=== PATIENT | male | born 1980 | race Two or more races ===

== ENCOUNTER 2022-12-01 05:44 | Emergency (ER) | payer OTHER ==
[~2022-12-01] VITALS: Ht 167.6 cm; Wt 80.3 kg
[2022-12-01] MEDS ORDERED: DICLOFENAC SODI75 MG PO (08:21)
== END 2022-12-01 08:51 | disposition home or self-care (01) ==
LOC: ER 05:44
DX: M79.602 Pain in left arm (principal)

== ENCOUNTER 2024-06-16 08:41 | Emergency (ER) | payer OTHER ==
[~2024-06-16] VITALS: Ht 175.3 cm; Wt 80.7 kg
[~2024-06-16 08:41] MED LIST: DICLOFENAC SODI75 MG PO
[2024-06-16] MEDS ORDERED: PROPOFOL 10,000 MCG/ML VIAL IV PUSH STA (09:21)
[2024-06-16] MEDS ORDERED: MEPERIDINE HCL 25 MG/ML AMPUL IM STA (09:22)
[2024-06-16] MEDS ORDERED: MIDAZOLAM HCL/PF 5 MG/ML VIAL IV STA (10:12)
[2024-06-16] MEDS ORDERED: FLUMAZENIL 0.5 MG/5 ML ML IV STA (10:12)
== END 2024-06-16 11:17 | disposition home or self-care (01) ==
LOC: ER 08:43
DX: S43.084A Other dislocation of right shoulder joint, initial encounter (principal); X58.XXXA Exposure to other specified factors, initial encounter; Y93.9 Activity, unspecified; Y92.89 Other specified places as the place of occurrence of the external cause; Y99.9 Unspecified external cause status